=== PATIENT | female | born 1975 | race Two or more races ===

== ENCOUNTER 2021-10-06 17:18 | Inpatient (IN) | payer MEDICAID ==
[~2021-10-06] VITALS: Ht 157.5 cm; Wt 68.2 kg
[2021-10-06] MEDS ORDERED: normal saline 1000ML IV soln IVB ONE (18:10)
[2021-10-06 18:39] LABS: BASOPHILS # (AUTO) 0.1 X10'3 (0-0.2); BASOPHILS % (AUTO) 0.5 % (0-1); EOSINOPHILS # (AUTO) 0.1 X10'3 (0-0.9); EOSINOPHILS % (AUTO) 0.4 % (0-6); HEMATOCRIT 36.6 % (35.0-45.0); HEMOGLOBIN 12.3 g/dl (12.0-16.0); LYMPHOCYTES # (AUTO) 1.1 X10'3 (1.1-4.8); LYMPHOCYTES % (AUTO) 8.8 % (21-51); MEAN CORPUSCULAR HEMOGLOBIN 30.1 PG (27.0-31.0); MEAN CORPUSCULAR HGB CONC 33.5 g/dL (33.0-36.5); MEAN CORPUSCULAR VOLUME 89.7 FL (78-98); MEAN PLATELET VOLUME 8.6 FL (7.4-10.4); MONOCYTES # (AUTO) 1.2 X10'3 (0-0.9); MONOCYTES % (AUTO) 9.9 % (2-12); NEUTROPHILS # (AUTO) 9.7 X10'3 (1.8-7.7); NEUTROPHILS % (AUTO) 80.4 % (42-75); PLATELET COUNT 213 X10'3 (140-440); RED BLOOD COUNT 4.07 X10'6 (4.20-5.60); RED CELL DISTRIBUTION WIDTH 12.8 % (11.5-14.5)
[2021-10-06 18:54] LABS: ALANINE AMINOTRANSFERASE 22 U/L (12-78); ALBUMIN/GLOBULIN RATIO 0.7 (1.1-1.5); ALKALINE PHOSPHATASE 135 IU/L (46-116); ANION GAP 10 (8-16); ASPARTATE AMINO TRANSFERASE 19 U/L (10-37); BILIRUBIN,TOTAL 0.7 MG/DL (0.1-1.0); BLOOD UREA NITROGEN 8 MG/DL (7-18); BUN/CREATININE RATIO 10.5 (6.6-38.0); C-REACTIVE PROTEIN 9.78 MG/DL (0.0-0.5); CALCIUM 8.3 MG/DL (8.5-10.1); CHLORIDE 98 MMOL/L (99-107); CREATININE 0.76 MG/DL (0.40-0.90); GLUCOSE 287 MG/DL (70-104); POTASSIUM 3.6 MMOL/L (3.5-5.1); SODIUM 132 MMOL/L (135-145); TOTAL CARBON DIOXIDE 23.6 MMOL/L (24-32); TOTAL PROTEIN 7.5 G/DL (6.4-8.2); eGFR 82 ML/MIN
[2021-10-06 19:18] LABS: CLARITY,URINE CLOUDY (Clear); COLOR,URINE YELLOW (Yellow); GLUCOSE, URINE >=1000 mg/dl (Neg); KETONES,URINE TRACE mg/dl (Neg); LEUKOCYTE ESTERASE ,URINE TRACE (Neg); NITRITES, URINE NEGATIVE (Neg); OCCULT BLOOD,URINE SMALL (Neg); PH,URINE 6.5 (4.8-8.0); PROTEIN,URINE TRACE mg/dl (Neg); URINE HCG NEGATIVE (NEG); UROBILINOGEN,URINE 0.2 E.U/dL (0.2-1.0)
[2021-10-06 19:21] LABS: UA COLLECTION TYPE NON-SPECIFIED
[2021-10-06 19:25] LABS: BACTERIA,URINE 4+ /HPF (Neg); WBC,URINE 30-50 /HPF (0-4)
[2021-10-06 19:26] LABS: MUCUS STRANDS FEW /LPF (Neg); SQUAMOUS EPITHELIAL CELL,UR FEW /LPF (FEW); TRANSITIONAL EPI CELLS,URINE FEW /HPF; WBC CLUMPS,URINE MODERATE /HPF (NEGATIVE)
[2021-10-06] MEDS ORDERED: CefTRIAXone 2gm/D5W 50ml BAG 50 ML IV ONE (19:55)
[2021-10-06] MEDS ORDERED: ketorolac trometh. 30mg/ml inj. IV ONE (19:55)
[2021-10-06] MEDS ORDERED: acetaminophen 325mg tablet PO ONE (19:55)
[2021-10-06] MEDS ORDERED: ondansetron/PF 4mg/2ml inj IV ONE (19:55)
[2021-10-06] MEDS ORDERED: CefTRIAXone 2gm/NS 100ml IVPB 100 ML IV ONE (20:01)
[2021-10-06] MEDS ORDERED: normal saline 1000ml 1,000 ML IV ONE ×2 (20:10→21:50)
[2021-10-06] MEDS ORDERED: magnesium Cl slow-release 64mg tablet PO PRN (23:10)
[2021-10-06] MEDS ORDERED: DEXTROSE 15 GM of carb/4 tabs (each vial/BOTTLE has 4 tablets) PO PRN ×2 (23:10)
[2021-10-06] MEDS ORDERED: potassium CL 10mEq/100ml bag 100 ML IV PRN (23:10)
[2021-10-06] MEDS ORDERED: glucagon, human recombinant 1mg kit SUBCUT PRN (23:10)
[2021-10-06] MEDS ORDERED: MESSAGE TO PHARMACY PO ONE (23:10)
[2021-10-06] MEDS: normal saline 1000ml 1,000 ML IV SCH (23:10)
[2021-10-06] MEDS ORDERED: mag hydrox/Alum hydrox/simeth 30ml oral suspension PO PRN (23:10)
[2021-10-06] MEDS ORDERED: potassium Cl 20 mEq SR tablet PO PRN (23:10)
[2021-10-06] MEDS ORDERED: dextrose 50%-water 50ml dispensing syringe IV PRN ×2 (23:10)
[2021-10-06] MEDS ORDERED: ondansetron/PF 4mg/2ml inj IV PRN (23:10)
[2021-10-06] MEDS ORDERED: magnesium 4gm in 100ml NS 100 ML IV PRN (23:10)
[2021-10-06] MEDS ORDERED: magnesium 2GM in 50ml NS 50 ML IV PRN (23:10)
[2021-10-06] MEDS ORDERED: magnesium hydroxide 30ml (MOM) UD suspension PO PRN (23:10)
[2021-10-06] MEDS ORDERED: iohexol 300mg/ml 100ml inj. ONE (23:32)
[2021-10-06 23:47] LABS: MAGNESIUM 1.7 MG/DL (1.5-2.4); POTASSIUM 3.2 MMOL/L (3.5-5.1)
[2021-10-06 23:48] LABS: HEMOGLOBIN A1C 10.7 % (4.5-6.2)
[2021-10-07] MEDS ORDERED: NO HOME MEDS (01:17)
[2021-10-07 01:34] LABS: BASOPHILS # (AUTO) 0.1 X10'3 (0-0.2); EOSINOPHILS % (AUTO) 0.3 % (0-6); HEMOGLOBIN 11.1 g/dl (12.0-16.0); LYMPHOCYTES # (AUTO) 1.7 X10'3 (1.1-4.8); MEAN CORPUSCULAR HGB CONC 34.5 g/dL (33.0-36.5); NEUTROPHILS # (AUTO) 6.8 X10'3 (1.8-7.7)
[2021-10-07 01:36] LABS: BASOPHILS % (AUTO) 1.1 % (0-1); HEMATOCRIT 32.3 % (35.0-45.0); MEAN CORPUSCULAR HEMOGLOBIN 31.4 PG (27.0-31.0); MEAN CORPUSCULAR VOLUME 91.1 FL (78-98); MONOCYTES # (AUTO) 1.1 X10'3 (0-0.9); MONOCYTES % (AUTO) 11.7 % (2-12); NEUTROPHILS % (AUTO) 69.9 % (42-75); PLATELET COUNT 221 X10'3 (140-440); RED BLOOD COUNT 3.54 X10'6 (4.20-5.60); RED CELL DISTRIBUTION WIDTH 12.4 % (11.5-14.5); WHITE BLOOD COUNT 9.7 X10'3 (4.5-11.0)
--- NOTE | 2021-10-07 03:27 | NUR ---
lab called to state pt green top is dilluted. redraw of green top done and sent to lab as well as a blood sugar adjustment. pt sleeping on her right side and fatigued but answering questions appropriately
[2021-10-07 03:53] LABS: ALANINE AMINOTRANSFERASE 34 U/L (12-78); ALBUMIN 2.1 G/DL (3.4-5.0); ALBUMIN/GLOBULIN RATIO 0.6 (1.1-1.5); ALKALINE PHOSPHATASE 100 IU/L (46-116); ANION GAP 9 (8-16); ASPARTATE AMINO TRANSFERASE 41 U/L (10-37); BILIRUBIN,TOTAL 0.5 MG/DL (0.1-1.0); BLOOD UREA NITROGEN 7 MG/DL (7-18); BUN/CREATININE RATIO 10.4 (6.6-38.0); CALCIUM 6.4 MG/DL (8.5-10.1); CHLORIDE 108 MMOL/L (99-107); CREATININE 0.67 MG/DL (0.40-0.90); GLUCOSE 239 MG/DL (70-104); MAGNESIUM 1.6 MG/DL (1.5-2.4); POTASSIUM 3.3 MMOL/L (3.5-5.1); SODIUM 139 MMOL/L (135-145); TOTAL CARBON DIOXIDE 22.2 MMOL/L (24-32); TOTAL PROTEIN 5.7 G/DL (6.4-8.2); eGFR > 90 ML/MIN
--- NOTE | 2021-10-07 06:33 | NUR ---
IV pulled from right hand related to infilltration
[2021-10-07] MEDS: normal saline 1000ml 1,000 ML IV SCH ×3 (06:45→19:10)
[2021-10-07] MEDS: docusate sod 100mg capsule PO SCH ×2 (07:34→20:29)
[2021-10-07] MEDS: K and/or MAG REPLACEMENT MC SCH ×2 (07:34→20:00)
[2021-10-07] MEDS: potassium Cl 20 mEq SR tablet PO PRN ×3 (07:34→16:45)
[2021-10-07] MEDS: heparin, porcine 5000 units/ml vial SQ SCH ×2 (07:34→20:30)
--- NOTE | 2021-10-07 10:06 | NUR ---
Pt resting comfortably, no needs at this time.
--- NOTE | 2021-10-07 12:06 | NUR ---
Patient in room ED 14. I have received report from mg CRABTREE and had the opportunity to ask questions and awaiting patients arrival .
--- NOTE | 2021-10-07 12:39 | NUR ---
patient arrived on floor . orientated to room c/o headache. Temp 100.0 will monitor
[2021-10-07 12:40] VITALS: BP 116/60
[2021-10-07] MEDS: acetaminophen 325mg tablet PO PRN ×2 (12:54→20:32)
[2021-10-07] MEDS: insulin Lispro (HumaLOG) vial - multi-dose SQ SCH ×2 (14:06→19:17)
[2021-10-07 18:00] VITALS: BP 103/70
--- NOTE | 2021-10-07 18:10 | NUR ---
Patient in room ORTHO 4018. I have received report from BRO Gonzalez and had the opportunity to ask questions and assume patient care.
--- NOTE | 2021-10-07 18:55 | NUR ---
temp retaken 98.7, patient ambulating to BR. patient only speaks wolof and has difficulty understanding greek. Appears more restful this afternoon speaking often to friends and family on phone. Report given to Joanna CRABTREE
[2021-10-07] MEDS ORDERED: cefTRIAXone 1g/NS 100ml IVPB 100 ML IV SCH (20:00)
[2021-10-07] MEDS ORDERED: insulin glargine (Lantus) pen - multi-dose SQ SCH (21:00)
[2021-10-07 22:00] VITALS: BP 101/69
[2021-10-08] MEDS: normal saline 1000ml 1,000 ML IV SCH ×2 (00:30→07:31)
[2021-10-08 05:00] VITALS: BP 99/66
[2021-10-08 06:18] LABS: BASOPHILS # (AUTO) 0.1 X10'3 (0-0.2); BASOPHILS % (AUTO) 1.1 % (0-1); EOSINOPHILS # (AUTO) 0.3 X10'3 (0-0.9); EOSINOPHILS % (AUTO) 3.6 % (0-6); HEMATOCRIT 31.5 % (35.0-45.0); HEMOGLOBIN 10.6 g/dl (12.0-16.0); LYMPHOCYTES # (AUTO) 1.8 X10'3 (1.1-4.8); MEAN CORPUSCULAR HEMOGLOBIN 31.2 PG (27.0-31.0); MEAN CORPUSCULAR HGB CONC 33.8 g/dL (33.0-36.5); MEAN CORPUSCULAR VOLUME 92.3 FL (78-98); MEAN PLATELET VOLUME 9.3 FL (7.4-10.4); MONOCYTES # (AUTO) 0.9 X10'3 (0-0.9); MONOCYTES % (AUTO) 11.1 % (2-12); NEUTROPHILS # (AUTO) 4.8 X10'3 (1.8-7.7); NEUTROPHILS % (AUTO) 61.2 % (42-75); PLATELET COUNT 184 X10'3 (140-440); RED BLOOD COUNT 3.42 X10'6 (4.20-5.60); RED CELL DISTRIBUTION WIDTH 12.7 % (11.5-14.5); WHITE BLOOD COUNT 7.8 X10'3 (4.5-11.0)
--- NOTE | 2021-10-08 06:38 | NUR ---
Patient in room ORTHO 4018. I have received report from LORENZO CRABTREE and had the opportunity to ask questions and assume patient care.
[2021-10-08 06:42] LABS: ALANINE AMINOTRANSFERASE 68 U/L (12-78); ALBUMIN 2.3 G/DL (3.4-5.0); ALBUMIN/GLOBULIN RATIO 0.5 (1.1-1.5); ALKALINE PHOSPHATASE 165 IU/L (46-116); ANION GAP 7 (8-16); ASPARTATE AMINO TRANSFERASE 51 U/L (10-37); BILIRUBIN,TOTAL 0.4 MG/DL (0.1-1.0); BLOOD UREA NITROGEN 5 MG/DL (7-18); BUN/CREATININE RATIO 7.8 (6.6-38.0); CALCIUM 8.1 MG/DL (8.5-10.1); CHLORIDE 109 MMOL/L (99-107); CREATININE 0.64 MG/DL (0.40-0.90); GLUCOSE 166 MG/DL (70-104); POTASSIUM 3.7 MMOL/L (3.5-5.1); SODIUM 140 MMOL/L (135-145); TOTAL PROTEIN 6.5 G/DL (6.4-8.2); eGFR > 90 ML/MIN
[2021-10-08] MEDS: heparin, porcine 5000 units/ml vial SQ SCH (07:31)
[2021-10-08] MEDS: docusate sod 100mg capsule PO SCH (07:31)
[2021-10-08] MEDS: K and/or MAG REPLACEMENT MC SCH (07:31)
[2021-10-08] MEDS: acetaminophen 325mg tablet PO PRN (07:37)
[2021-10-08] MEDS: insulin Lispro (HumaLOG) vial - multi-dose SQ SCH (08:46)
[2021-10-08] MEDS ORDERED: CIPR-202 PO (10:40)
--- NOTE | 2021-10-08 13:00 | NUR ---
[facility] GAVE DISCHARGE INSTRUCTIONS TO SON IN LAW WHO SPEAKS [place]. PATIENT PREFFERED THAT TO SURGICAL ELASTIC KNITTER WITH ME.
--- NOTE | 2021-10-08 13:04 | NUR ---
DM Consult: Pt hx T2DM at least past year A1C 10.7% on no meds per EMR. Pt Irish speaking only and now discharged per EMR. Written Irish DM ed w/ RD contact information mailed to pt home address provided in EMR. Addendum: 10/08/21 at [address] Amended: Links added.
== END 2021-10-08 12:50 | disposition home or self-care (01) | DRG 720 ==
LOC: ER 17:19 → UNDOADMIN 23:09 → ED HOLD 23:09 → ORTHO 4S 10-07 12:20
PROVIDERS: ADMIT Internal Medicine; ATTEND Internal Medicine
PROC: BW211ZZ Computerized Tomography (CT Scan) of Abdomen and Pelvis using Low Osmolar Contrast (ICD-10-PCS; principal; 2021-10-07)
DX: A41.59 Other Gram-negative sepsis (principal); I95.9 Hypotension, unspecified; E87.1 Hypo-osmolality and hyponatremia; N10 Acute pyelonephritis; E87.6 Hypokalemia; E11.9 Type 2 diabetes mellitus without complications; B96.20 Unspecified Escherichia coli [E. coli] as the cause of diseases classified elsewhere; Z20.822 Contact with and (suspected) exposure to COVID-19; Z87.891 Personal history of nicotine dependence
CPT/HCPCS: 36415; 71045; 74177; 80053; 81001; 81025; 82948; 83036; 83605; 83735; 84132; 84145; 85025; 86140; 87040; 87077; 87088; 87186; 87502; 87503; 87635; 96361; 96365; 96375; 99285; C9803; G0378; J0696; J1644; J1815; J1885; J2405; J7030; Q9967